=== PATIENT | female | born 1955 | race Caucasian/White ===

== ENCOUNTER 2022-06-20 03:12 | Emergency (ER) | payer MEDICARE, MEDICAID, SELFPAY ==
[2022-06-20] VITALS (11 sets, daily range): BP systolic 150–156; BP diastolic 74–78; PULSE 68–80; RESP 18; TEMP 36.4; O2SAT 94–96; BMI 36.0
--- NOTE | 2022-06-20 03:48 | DI.RAD.S_ITS ---
PROCEDURE: XR ACUTE ABDOMEN SERIES INDICATIONS: abdominal pain TECHNIQUE: One view chest and two views of the abdomen were acquired. COMPARISON: [facility], CT, CT ABDOMEN PELVIS WITH CONTRAST, 11/17/2020, 13:31. FINDINGS: Surgical changes and devices: Surgical clips are seen in the right lower quadrant. Chest: Lungs are clear. Heart size is normal. No pleural effusions. No pneumoperitoneum. Aorta is tortuous. Abdomen: Bowel gas pattern is normal. Moderate amount of stool in colon. No suspicious calcifications. Visualized solid organ contours appear normal. Bones: No suspicious bony lesions. Scoliosis. Degenerative changes in lumbar spine. IMPRESSION: 1. No acute abnormalities. 2. Normal bowel gas pattern. 3. Moderate amount of stool in colon. 4. Tortuosity of thoracic aorta. Suspect aortic ectasia. No significant discrepancy with the tooling mechanic radiology preliminary report. Dictated by: Maldonado Escobar M.D. on 06/20/2022 at 8:29 Approved by: Maldonado Escobar M.D. on 06/20/2022 at 8:31
[2022-06-20] MEDS: SODIUM CHLORIDE 0.9% 1,000 ML 1000 ML IV (03:53)
[2022-06-20] MEDS: ONDANSETRON 4 MG/2 ML INJ IV ×2 (03:53→05:37)
[2022-06-20 03:57] LABS: Add Manual Diff / Slide Review NO; Basophils Absolute Auto 0 /uL (0-100); Basophils Percent Auto 0.4 % (0-2); Eosinophils Absolute Auto 0 /uL (0-450); Eosinophils Percent Auto 0.1 % (2-4); Hemoglobin 13.2 g/dL (12.0-16.0); Lymphocytes Absolute Auto 1800 /uL (1100-4500); Lymphocytes Percent Auto 15.7 % (25-40); Mean Corpuscular HGB Conc 33.9 % (30-36); Mean Corpuscular Hemoglobin 28.6 PG (26-34); Mean Corpuscular Volume 84.2 fL (80-100); Monocytes Absolute Auto 300 /uL (0-900); Monocytes Percent Auto 2.3 % (3-14); Neutrophils Absolute Auto 9400 /uL (1500-7000); Neutrophils Percent Auto 81.5 % (50-75); Platelet Count 339 X10^3/uL (150-400); Red Blood Cell Count 4.63 X10^6/uL (4.0-5.2); Red Cell Distribution Width 14.1 % (11.6-14.8); White Blood Cell Count 11.5 X10^3/uL (4.5-11.0)
--- NOTE | 2022-06-20 04:00 | PC.NURSE ---
Resting quietly in a darkened room - NAD - no needs voiced at this time - no vomiting noted
[2022-06-20 04:02] LABS: Alanine Aminotransferase 28 IU/L (<35); Albumin 4.4 g/dL (3.5-5.0); Albumin Globulin Ratio 1.3 (1.0-2.8); Alkaline Phosphatase 131 U/L (38-126); Aspartate Aminotransferase 20 IU/L (14-36); BUN Creatinine Ratio 26.8 (6-22); Bilirubin Total 0.3 mg/dL (0.2-1.3); Blood Urea Nitrogen 19 mg/dL (7-17); Calcium 9.5 mg/dL (8.4-10.2); Carbon Dioxide 29 mmol/L (22-32); Chloride 100 mmol/L (98-107); Estimated Glomerular Filt Rate > 60 mL/min (>60); Globulin 3.3 g/dL (1.7-4.1); Glucose 165 mg/dL (80-110); HEMOLYSIS < 15 (0-50); Lipase 94 U/L (23-300); Magnesium 1.9 mg/dL (1.6-2.3); Potassium 3.9 mmol/L (3.4-5.1); Sodium 137 mmol/L (137-145); Total Protein 7.7 g/dL (6.3-8.2)
--- NOTE | 2022-06-20 04:02 | ED.NAVMDI ---
HPI - Nausea/Vomiting/Diarrhea General Chief complaint: Nausea/Vomiting/Diarrhea Stated complaint: Cant eat or drink, dehydrated Time Seen by Provider: 06/20/22 03:28 Source: patient Mode of arrival: Ambulatory History of Present Illness HPI Narrative: 66-year-old woman presents after an acute episode of vomiting earlier this evening that has persisted for the last 6 hours. She had had some clam shatter and became sick shortly there after. Initially she assumed was related to eating however as she has continued to vomit and has not had any diarrhea she is wondering if this may be a recurrent bowel obstruction. She states she has had at least 8 abdominal surgeries including a hysterectomy and approximately 3 years ago had a bowel obstruction. She states that she had a normal bowel movement sometime yesterday but has not been passing gas for the last number of hours. She has increasing abdominal pain and fullness without chest pain, shortness of breath, palpitations, headache, fevers, rashes, neurologic complaints. Related Data Allergies Allergy/AdvReac Type Severity Reaction Status Date / Time No Known Drug Allergies Allergy Verified 06/20/22 04:33 Review of Systems Review of Systems Narrative: Remainder of complete review of systems is otherwise unremarkable except for that included in the HPI. Patient History Medical History (Updated 06/20/22 @ 06:30 by Ena Ag MD) History of small bowel obstruction Surgical History (Updated 06/20/22 @ 04:05 by Ena Ag MD) History of hysterectomy Social History Smoking Status: Never smoker Smoking Status: Never smoker Substance Use Type: does not use Exam Initial Vital Signs Initial Vital Signs: Vital Signs Pulse Rate 80 06/20/22 03:22 Pulse Oximetry 96 06/20/22 03:22 General: Pale, mildly diaphoretic, appears to be in pain but Able to give a complete and coherent history. Well-nourished well-developed HEENT: Moist mucous membranes, normal sclera with reactive pupils, Neck: No JVD, supple Respiratory: Lungs are clear to auscultation, no wheezing no rales no rhonchi. Full and symmetrical air movement Cardiac: Regular rate and rhythm no murmurs no bruits Abdomen: Soft, mildly distended with tympanitic bowel tones, no rebound or guarding. No flank pain Skin: Warm and dry, no rashes Neurologic: Grossly neurologically intact with no obvious asymmetries or abnormalities Extremities: No trauma, well perfused Psych: Cooperative, appropriate insight and affect Course Orders Ordered: ED Orders 06/20/22 03:20 Complete Blood Count AUTO DIFF Stat Comprehensive Metabolic Panel Stat Lipase Stat Magnesium Stat 06/20/22 03:48 XR acute abdomen series Stat 06/20/22 03:50 COVID19 -Nasal RAPID/Pre-Proc Stat Discontinued Medications Sodium Chloride (Normal Saline 0.9%) 1,000 mls @ 1,000 mls/hr IV BOLUS ONE Stop: 06/20/22 04:47 Last Infusion: 06/20/22 05:21 Dose: 0 mls/hr Documented By: Admin: 06/20/22 03:53 Dose: 1,000 mls/hr Documented By: DELONTE Ondansetron HCl (Ondansetron 4 Mg/2 Ml Inj) 4 mg IV NOW ONE Stop: 06/20/22 03:49 Last Admin: 06/20/22 03:53 Dose: 4 mg Documented By: DELONTE Ondansetron HCl (Ondansetron 4 Mg/2 Ml Inj) 4 mg IV NOW ONE Stop: 06/20/22 05:22 Last Admin: 06/20/22 05:37 Dose: 4 mg Documented By: MAGALYS Vital Signs Vital signs: Vital Signs - 8 hr 06/20/22 03:24 06/20/22 03:28 06/20/22 03:22 Temperature 97.6 F Pulse Rate 74 80 Respiratory Rate 18 Blood Pressure 151/77 H Pulse Oximetry 96 96 Oxygen Delivery Method Room Air 06/20/22 03:25 06/20/22 03:25 06/20/22 03:30 Temperature Pulse Rate 74 Respiratory Rate Blood Pressure 151/77 H 150/74 H Pulse Oximetry 95 Oxygen Delivery Method 06/20/22 03:30 06/20/22 04:00 06/20/22 04:00 Temperature Pulse Rate 74 68 Respiratory Rate Blood Pressure 156/78 H Pulse Oximetry 94 94 Oxygen Delivery Method 06/20/22 04:30 06/20/22 04:30 06/20/22 05:00 Temperature Pulse Rate 73 80 Respiratory Rate Blood Pressure 153/75 H Pulse Oximetry 95 95 Oxygen Delivery Method 06/20/22 05:30 06/20/22 06:00 Temperature Pulse Rate 75 76 Respiratory Rate Blood Pressure Pulse Oximetry 94 94 Oxygen Delivery Method MDM - Nausea/Vomiting/Diarrhea Lab Data Result diagrams: 06/20/22 03:20 06/20/22 03:20 Labs: Lab Results 06/20/22 06/20/22 06/20/22 Range/Units 03:20 03:20 03:50 WBC 11.5 H (4.5-11.0) X10^3/uL RBC 4.63 (4.0-5.2) X10^6/uL Hgb 13.2 (12.0-16.0) g/dL Hct 39.0 (36-46) % MCV 84.2 (80-100) fL MCH 28.6 (26-34) PG MCHC 33.9 (30-36) % RDW 14.1 (11.6-14.8) % Plt Count 339 (150-400) X10^3/uL Neut % (Auto) 81.5 H (50-75) % Lymph % (Auto) 15.7 L (25-40) % [place] % (Auto) 2.3 L (3-14) % Eos % (Auto) 0.1 L (2-4) % Baso % (Auto) 0.4 (0-2) % Neut # (Auto) 9400 H (8492-3828) /uL Lymph # (Auto) 1800 (8272-7678) /uL [place] # (Auto) 300 (0-900) /uL Eos # (Auto) 0 (0-450) /uL Baso # (Auto) 0 (0-100) /uL Sodium 137 (137-145) mmol/L Potassium 3.9 (3.4-5.1) mmol/L Chloride 100 (98-107) mmol/L Carbon Dioxide 29 (22-32) mmol/L BUN 19 H (7-17) mg/dL Creatinine 0.71 (0.52-1.04) mg/dL Estimated GFR > 60 (>60) mL/min BUN/Creatinine Ratio 26.8 H (6-22) Glucose 165 H (80-110) mg/dL Calcium 9.5 (8.4-10.2) mg/dL Magnesium 1.9 (1.6-2.3) mg/dL Total Bilirubin 0.3 (0.2-1.3) mg/dL AST 20 (14-36) IU/L ALT 28 (<35) IU/L Alkaline Phosphatase 131 H (38-126) U/L Total Protein 7.7 (6.3-8.2) g/dL Albumin 4.4 (3.5-5.0) g/dL Globulin 3.3 (1.7-4.1) g/dL Albumin/Globulin Ratio 1.3 (1.0-2.8) Lipase 94 (23-300) U/L SARS-CoV-2 (PCR) Negative (Negative) Imaging Data Acute abd series: My Impression: Unremarkable chest x-ray with no acute cardiopulmonary abnormality. No evidence of bowel obstruction. Fairly heavy stool load throughout the colon. MDM Narrative Medical decision making narrative: 66-year-old woman presents with 6 hours of vomiting concerned that she may have a small bowel obstruction. Independent review of acute abdominal series does not show a bowel obstruction but does suggest quite a bit of stool loading. She is feeling slightly better after fluid bolus and the 1st dose of Zofran but did have another bit of emesis. Will give her another dose of Zofran. Lab work is relatively reassuring. Slightly elevated white blood cell count. Abdomen is again re-examined, certainly not surgical. We discussed options for relieving her constipation. Given the fact that she is having trouble keeping even water down using a larger volume oral options such as lactulose or MiraLax is not going to be all that effective. She does not believe that she would physically be able to administer an enema. Believe she might be able to do a suppository. She is willing to try oral laxatives as pills when she is able to keep at least some liquids in. Feeling better after the additional dose of Zofran. She has tolerated some sandro taryn. Have given her a single dose of Dulcolax in the of emergency department. I think she is safe for home discharge and will send her home with a couple of tablets of Zofran if she continues to have nausea. Will recommend additional laxative of choice until she has a significant bowel movement. Will have her return if symptoms worsen Discharge Plan Departure Patient Disposition: Home Clinical Impression: Acute vomiting Constipation Qualifiers: Constipation type: unspecified constipation type Qualified Code(s): K59.00 - Constipation, unspecified Instructions: DI for Nausea -- Adult Activity Restrictions/Additional Instructions: Thank you for coming in today I am not finding any evidence of life-threatening abnormality on your workup. There is no evidence of overwhelming infection, heart attack or heart attack like syndrome, bowel obstruction, acute abdominal infection that would require surgical intervention or kidney or electrolyte abnormalities. Your vomiting is somewhat improved with nausea medication, Zofran. I am going to send you home with a small amount of Zofran to use over the next 12-24 hours if you needed. Your x-ray does not show a bowel obstruction however it does show that you have a large volume of stool throughout your colon. I have given you a Lazaro a lax tablet to encourage you to have a bowel movement later today. If you do not I would encourage you to use your laxative of choice. Good options include milk of magnesia, Ex-Lax or dulcolax, all of which are [id number]. If you feel that you are worsening or your developing new or unusual symptoms you do need to return to the emergency department
[2022-06-20 04:17] LABS: COVID19 -Nasal RAPID Negative (Negative)
--- NOTE | 2022-06-20 04:46 | PC.NURSE ---
Returns to the room from radiology via stretcher
--- NOTE | 2022-06-20 05:30 | PC.NURSE ---
Resting in room - no needs voiced - PWD - respirations equal and unlabored bilaterally
--- NOTE | 2022-06-20 06:00 | PC.NURSE ---
Given PO fluid at this time
--- NOTE | 2022-06-20 06:30 | PC.NURSE ---
Ambulatory to the bathroom - steady gait
[2022-06-20] MEDS: BISACODYL 10 MG SUPP PR (06:53)
[2022-06-20] MEDS: BISACODYL 5 MG TABLET 10 MG PO (06:53)
[2022-06-20] MEDS: ONDANSETRON 4 MG ODT PREPACK 1 BOTTLE MISC (07:05)
== END 2022-06-20 07:07 | disposition home or self-care (01) ==
PROVIDERS: Emergency Provider Emergency Medicine
DX: R11.2 Nausea with vomiting, unspecified (principal); K59.00 Constipation, unspecified; E86.0 Dehydration; Z20.822 Contact with and (suspected) exposure to COVID-19
CPT/HCPCS: 36415; 74022; 80053; 83690; 83735; 85025; 87635; 96361; 96374; 96376; 99284; C9803; J2405